=== PATIENT | male | born 2000 | race Hispanic/Latino ===

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

== ENCOUNTER 2022-01-29 14:36 | Emergency (ER) | payer MEDICAID ==
[~2022-01-29] VITALS: Ht 167.6 cm; Wt 54.4 kg
[2022-01-29 15:49] VITALS: BP 118/85
== END 2022-01-29 15:53 | disposition home or self-care (01) ==
LOC: EDH 14:36
DX: F41.9 Anxiety disorder, unspecified (principal); R51.9 Headache, unspecified; R11.2 Nausea with vomiting, unspecified
CPT/HCPCS: 99281